=== PATIENT | female | born 1970 | race Caucasian/White ===

== ENCOUNTER 2018-05-17 11:20 | Outpatient (CLI) | payer BC | END 2018-05-17 11:21 | disposition critical access hospital (66) | LOC: EMS 11:20 | PROVIDERS: ATTEND Surgery | DX: M54.5 Low back pain (principal) | CPT/HCPCS: A0425; A0429 ==

== ENCOUNTER 2018-05-17 11:38 | Emergency (ER) | payer BC ==
[2018-05-17] MEDS ORDERED: BUPIVACAINE 0.5%-EPI 1:200000 PF 10 ML VIAL SUBQ STA (12:33)
[2018-05-17] MEDS ORDERED: TRIAMCINOLONE 40 MG/ML VIAL SUBQ STA (12:33)
[2018-05-17] MEDS ORDERED: HYDROmorphone 1 MG/ML CARPUJECT IM STA ×2 (12:33→13:25)
--- NOTE | 2018-05-17 12:36 | ED Physician Documentation ---
PD HPI BACK PAIN - Stated complaint Stated Complaint: BACK PX - Chief complaint Chief Complaint: Back Pain - History obtained from History obtained from: Patient, EMS - History of Present Illness Timing - onset: Today (She has a H/O L4/5 remote Discectomy. She has had spasms in the past but not for quite some time. She had a gradual onset severe left back pain that took her to her knees this morning. It did not radiate to the buttocks or legs. There is no associated weakness, numbness, or tingling of the saddle area or lower extremities. It is similar to prior spasms. She basically has no pain at rest but with any movement she has severe pain and is unable To walk or ambulate because of it.) Review of Systems Constitutional: denies: Fever, Chills : denies: Dysuria, Frequency, Hesitancy PD PAST MEDICAL HISTORY - Past Medical History Past Medical History: Yes GI: Crohn's disease - Past Surgical History Past Surgical History: Yes /CONTACT [employer]ISHER: section - Present Medications Home Medications: Ambulatory Orders Medication Instructions Recorded Confirmed Cyclobenzaprine [Flexeril] 10 mg PO TID PRN #20 tablet 05/17/18 Ibuprofen [Motrin] 800 mg PO Q8H PRN #30 tablet 05/17/18 Lidocaine Patch 5% [Lidoderm Patch] 1 patch TOP DAILY PRN #10 patch 05/17/18 Oxycodone HCl/Acetaminophen 1 each PO 05/17/18 [Oxycodone-Acetaminophen 5-325] Oxycodone HCl/Acetaminophen 1 - 2 each PO Q6H PRN #14 tablet 05/17/18 [Percocet 5-325 mg Tablet] - Allergies Allergies/Adverse Reactions: Allergies Allergy/AdvReac Type Severity Reaction Status Date / Time Sulfa (Sulfonamide Allergy Rash Verified 05/17/18 12:38 Antibiotics) - Social History Does the pt smoke?: No Smoking Status: Never smoker Does the pt drink ETOH?: No ETOH Use: Wine Does the pt have substance abuse?: No - Immunizations Immunizations are current?: No Immunizations: TDAP >10years/unknown PD ED PE NORMAL - Vitals Vital signs reviewed: Yes - General General: Alert and oriented X 3, No acute distress, Other (Unable to move because of pain, she is laying right lateral decubitus with her legs flexed.) - Abdomen Abdomen: Soft, Non tender - Back Back: No spinal TTP - Extremities Extremities: Other (The patient has equal and normal Achilles and patellar ref lexes bilaterally. Normal sensation in all areas of the legs. Patient denies saddle anesthesia. Normal strength in flexion-extension at the ankles, knees, and flexion of the hips.) - Neuro Neuro: Alert and oriented X 3, Normal speech Results - Vitals Vitals: Vital Signs - 24 hr 05/17/ 11:43 Temperature 36.4 C L Heart Rate 74 Respiratory 15 Rate Blood Pressure 150/94 H O2 Saturation 99 Oxygen O2 Source Room air Procedures - General procedure General procedure: I personally did a trigger point injection in the symptomatic area of the left low back using a mixture of 9 mL of 0.5% Marcaine with epinephrine and 1 mL of 40 mg of Kenalog. PD MEDICAL DECISION MAKING - ED course ED course: This patient has seemingly uncomplicated musculoskeletal back pain. The patient has no "red flags." Specifically denies IV drug use, fevers, incontinence, saddle anesthesia. Spinal epidural abscess was considered, given that the patient has no fever, is not diabetic, has no spinal tenderness, does not use IV drugs, and has no bilateral neurologic symptoms, the diagnosis of spinal epidural abscess is considered exceedingly unlikely. The [place] prescription monitoring program was queried with regard to this patient. No concerning findings were found. She was administered divided doses of pain medicine as well as a trigger point injection and had gradual improvement and was able to regain mobility. Departure - Departure Disposition: 01 Home, Self Care Clinical Impression: Back pain Qualifiers: Back pain location: low back pain Chronicity: acute Back pain laterality: left Sciatica presence: without sciatica Qualified Code(s): M54.5 - Low back pain Condition: Good Record reviewed to determine appropriate education?: Yes Instructions: ED Neck Back Pain General Prescriptions: Cyclobenzaprine [Flexeril] 10 mg PO TID PRN #20 tablet PRN Reason: Spasms Ibuprofen [Motrin] 800 mg PO Q8H PRN #30 tablet PRN Reason: PAIN &/OR FEVER Lidocaine Patch 5% [Lidoderm Patch] 1 patch TOP DAILY PRN #10 patch PRN Reason: pain Oxycodone HCl/Acetaminophen [Percocet 5-325 mg Tablet] 1 - 2 each PO Q6H PRN #14 tablet PRN Reason: pain Comments: Call your doctor to arrange a follow-up appointment, make the next available appointment. In the interim, return anytime if worse or if new symptoms develop. Do not drink or drive while taking narcotic pain medication. Note that many narcotic pain relievers also contain Tylenol/acetaminophen. Please ensure that your total dose of acetaminophen from all sources does not exceed 3 g (3000 mg) per day. You may get constipated while on this medication. Take a stool softener such as Colace twice a day while you are on it. Also add an [id number]-[id number] laxative such as senna or MiraLAX on any day that you do not have a bowel movement. If you received a narcotic pain medication or sedative while in the emergency department, do not drive for the next 24 hours. Your blood pressure was elevated today on check into the emergency department. This does not mean that you have hypertension, it is a common phenomenon to come to the emergency department and have elevated blood pressure. I recommend that you see your primary care physician within the week to have it rechecked when you are feeling better.
[2018-05-17] MEDS ORDERED: KETOROLAC 60 MG/2 ML VIAL IM STA (13:25)
[2018-05-17] MEDS ORDERED: LIDOCAINE PATCH 5% TOP STA (14:25)
[2018-05-17] MEDS ORDERED: LORazepam 2 MG/ML VIAL IM STA (14:25)
[2018-05-17 15:35] VITALS: BP 140/90
[2018-05-17] MEDS ORDERED: ONDANSETRON ODT 4 MG TABLET TL STA (15:45)
== END 2018-05-17 15:52 | disposition home or self-care (01) ==
LOC: ED 11:38
DX: M54.5 Low back pain (principal); R03.0 Elevated blood-pressure reading, without diagnosis of hypertension
CPT/HCPCS: 20552; 96372; 99283; A9270; J1170; J2060; Q0162